=== PATIENT | female | born 1960 | race Caucasian/White ===

== ENCOUNTER 2019-03-13 11:55 | Inpatient (IN) | payer OTHER ==
[2019-03-13 12:45] LABS: #Basophils 0.1 thou/uL (0.0-0.2); #Eosinphils 0.1 thou/uL (0.0-0.7); #Lymphocytes 1.6 thou/uL (1.20-3.40); #Neutrophils 11.6 thou/uL (1.40-6.50); %Basophils 0.5 % (0.0-1.0); %Eosinophils 0.6 % (0.0-10.0); %Lymphocytes 11.1 % (21.0-51.0); %Monocytes 6.7 % (0.0-10.0); %Neutrophils 81.2 % (42.0-75.0); Hemoglobin 13.4 g/dL (12.0-16.0); Mean Corpuscular HGB CONC 31.3 g/dL (32.0-36.0); Mean Corpuscular Hemoglobin 30.9 pg (27.0-31.0); Mean Corpuscular Volume 98.7 fL (78.0-98.0); Mean Platelet Volume 9.8 fL (7.4-10.4); Platelet Count 378 thou/uL (130-400); RBC Distribution Width 14.8 % (11.5-14.5); Red Blood Cell (RBC) Count 4.35 mill/uL (4.20-5.40); White Blood Cell (WBC) Count 14.3 thou/uL (4.8-10.8)
[2019-03-13 13:07] LABS: ALT (SGPT) 83 U/L (8-55); AST (SGOT) 199 U/L (5-34); Albumin 3.4 g/dL (3.5-5.0); Alkaline Phosphatase 811 U/L (40-110); Anion Gap 17 mmol/L (10-20); BUN (Urea Nitrogen) 11 mg/dL (9.8-20.1); CK (CPK) 236 U/L (29-168); Calc. Creatinine Clearance 0 mL/min (70-130); Calcium 9.5 mg/dL (7.8-10.44); Carbon Dioxide 24 mmol/L (22-29); Chloride 95 mmol/L (98-107); Estimated GFR-MDRD 78; Globulin 4.3 g/dL (2.4-3.5); Glucose 107 mg/dL (70-105); Potassium 4.1 mmol/L (3.5-5.1); Protein, Total 7.7 g/dL (6.0-8.3); Sodium 132 mmol/L (136-145)
[2019-03-13] MEDS ORDERED: Iopamidol-370 76% 500 ML 1 ML ONE (13:42)
[2019-03-13 13:58] LABS: Magnesium 2.2 mg/dL (1.6-2.6)
--- NOTE | 2019-03-13 14:32 | RAD ---
RADIOGRAPH CHEST 1 VIEW: DATE: 03/13/2019 HISTORY: 58-year-old female with dyspnea FINDINGS: There are no airspace densities, pulmonary edema, pneumothorax, or cardiomegaly. The lateral costophr enic angles are sharp. IMPRESSION: No acute cardiopulmonary findings.
--- NOTE | 2019-03-13 15:10 | CT ---
CT ANGIOGRAM THORAX WITH CONTRAST: (CTA pulmonary angiogram) DATE: 03/13/2019 HISTORY: 50-year-old female with dyspnea on exertion, fatigue, weight loss. TECHNIQUE: IV injection of iodinated contrast. Scan acquisition timing attempted to coincide with iodinated contrast bolus reaching maximal density in pulmonary arteries. 3-D MIP reconstructions. FINDINGS: Pulmonary thromboembolism: None. Lungs: No consolidation or edema. No suspicious nodules. Pneumothorax: None. Pleural effusion: None. Thoracic aorta: No aneurysm or dissection. Mediastinum: Enlarged right subcarinal suspicious mediastinal lymph nodes extending toward right lowe r hilar region. heart: No cardiomegaly or pericardial effusion. Osseous structures: Permeative, expansile lesion involving the lateral aspect of left fourth rib. IMPRESSION: 1. No pulmonary thromboembolism. 2. Metastatic liver disease. 3. Ascites. 4. Left breast cavity, with mass, edema, and severe left breast skin thickening. Suspicious for infla mmatory left breast cancer. 5. Left axillary lymphadenopathy. 6. Destructive osseous lesion at left fourth rib: Evidence for bone metastasis. 7. Right subcarinal mediastinal lymphadenopathy.
--- NOTE | 2019-03-13 15:18 | CT ---
CT OF THE ABDOMEN AND PELVIS WITH IV CONTRAST INDICATION: Left breast mass with intermittent abdominal pain COMPARISON: None FINDINGS: ABDOMEN: Lung bases: Clear Liver: There are numerous large heterogeneous enhancing hypodense masses involving the liver consiste nt with metastatic disease. One of the largest conglomeration of masses is seen within the right hepatic lobe measuring 11 cm. Gallbladder: The gallbladder is filled with hyperdense material which may reflect multiple stones, s ludge or vicarious excretion of contrast within the gallbladder. Pancreas: Normal. Adrenal glands: Normal. Spleen: Normal. Kidneys and ureters: Normal. No hydronephrosis. Vasculature: There are moderate vascular calcifications seen involving the visualized vasculature. Lymph nodes:There are pathologically enlarged lymph nodes within the upper abdomen and the gastrohepa tic, peripancreatic and periportal regions. One of the largest is seen within the periportal region measuring 1.8 cm on image 30 of series 3. Free fluid in abdomen:There is mild free fluid within the abdomen. There is nodularity involving the anterior liver capsule image 24 series 3 measuring 9.5 mm. There is additional area of nodularity within the left paracolonic gutter measuring 1.4 cm image 34 series 3. Additional areas of subtle nod ularity is seen within the left paracolonic gutter. Additional small focus of nodularity seen involving the right hemidiaphragm on image 8 of series 3 measuring 7 mm. Findings are suspicious for peritoneal carcinomatosis. PELVIS: Small and large bowel: Normal Appendix:Normal with a tiny appendicolith Bladder: Normal. Rectal and perirectal soft tissues:Normal. Reproductive structures: Normal. Free fluid in pelvis: There is moderate free fluid in the pelvis Lymphadenopathy pelvis: No lymphadenopathy is evident. Osseous structures: No acute osseous abnormality. No destructive osteolytic or osteoblastic lesion i s identified. There is scattered degenerative and osteoarthritic changes. Soft tissues:Normal. IMPRESSION: 1. Findings of diffuse hepatic metastatic disease, upper abdominal malignant lymphadenopathy and susp icion of peritoneal carcinomatosis with mild ascites. Diagnostic paracentesis may be helpful to confirm the peritoneal carcinomatosis. 2. Hyperdense material within the gallbladder may reflect hyperdense, or sludge, stones or vicarious excretion of contrast.
[2019-03-13] MEDS ORDERED: Morphine 4 MG/ML VIAL ONE (16:01)
[2019-03-13 16:27] LABS: Bacteria/HPF None Seen HPF (None Seen); Bilirubin 1+ (Negative); Blood, Urine Negative (Negative); Clarity Clear (Clear); Glucose, Urine (Dipstick) Normal (Negative); Leukocyte Negative Leu/uL (Negative); Nitrite 1+ (Negative); Protein, Urine (Dipstick) 20 mg/dL (Neg-Trace); RBC/HPF 0-3 HPF (0-3); Squamous Epithelial 0-3 HPF (0-3); Urobilinogen 6 mg/dL (Less than 2); WBC/HPF 0-3 HPF (0-3)
[2019-03-13] MEDS ORDERED: Acetaminophen 650 MG Suppository PR PRN (17:45)
[2019-03-13] MEDS ORDERED: Bisacodyl 5 MG TAB PO PRN (17:45)
[2019-03-13] MEDS ORDERED: Acetaminophen 325 MG TAB PO PRN (17:45)
--- NOTE | 2019-03-13 18:28 | HP ---
PRIMARY CARE PROVIDER: Fabio Briscoe MD CHIEF COMPLAINT: Shortness of breath. HISTORY OF PRESENT ILLNESS: Ms. Mcleod is a pleasant 58-year-old lady, who was seen at [facility] on March 13, 2019. She reports that six months ago, she noticed a "cyst" in her left breast. She also reports some rash in the area. She reports feeling short of breath over the last one month. She denies orthopnea or paroxysmal nocturnal dyspnea. She endorses shortness of breath with exertion. She denies any chest pain. She reports that the breast cyst ruptured one week ago. She reports that the breast mass has been getting worse. She reports night sweats over the last 2 weeks. She reports weight loss of 20 pounds in the last one month. She also reports vomiting over the last 3 weeks. She also reports abdominal discomfort over the last 1 to 2 months. She reports some bright streaks on toilet paper over the last couple of weeks. She denies any dark blood. She also reports pain over her right buttock. She presented to the emergency room because of the above symptoms. REVIEW OF SYSTEMS: All systems were reviewed and found to be negative except for the pertinent positives mentioned above. PAST MEDICAL HISTORY: None, she thinks she may have a history of gastroesophageal reflux disease, but has not sought treatment. She has not seen a physician in 15 years. PAST SURGICAL HISTORY: Right hand surgery. SOCIAL HISTORY: She currently smokes 4 to 5 cigarettes a day. Until two weeks ago, she was smoking one pack of cigarettes a day. She reports marijuana use. She denies alcohol use. FAMILY HISTORY: She thinks that her mother may have from breast cancer in her late 50s. ALLERGIES: NO KNOWN DRUG ALLERGIES. CURRENT MEDICATIONS: None. PHYSICAL EXAMINATION: GENERAL: On examination, Ms. Mcleod is awake and alert, not in acute distress. VITAL SIGNS: Blood pressure is 157/87, pulse 106, respiratory rate 17, and oxygen saturation 99% on room air. She is afebrile. EYES: She has scleral icterus. No conjunctival pallor. ENT: Dry mucosal membranes. No oropharyngeal erythema or exudates. NECK: Supple and nontender. Trachea is midline. RESPIRATORY: Accessory muscles of breathing are not active. Chest wall movements are symmetric bilaterally. Lungs are clear to auscultation without wheeze, rhonchi, or crepitations. CARDIOVASCULAR: S1 and S2 are heard, tachycardic and regular. Peripheral pulses palpable. ABDOMEN: Soft, mild tenderness in the right upper and left upper quadrants. No guarding or rigidity. Bowel sounds are heard. BREASTS: The patient has induration around left nipple and left lower quadrant of the left breast, she has faint erythema under the breast. There is no drainage. NEUROLOGIC: Cranial nerves 2 through 12 are intact. MUSCULOSKELETAL: The patient is able to move all 4 extremities. SKIN: No rashes. PSYCHIATRIC: Flat affect. The patient is oriented to person, place, and time. LYMPHATIC: Left axillary lymphadenopathy. LABORATORY DATA: Ms. Mcleod's labs and investigations were reviewed. I reviewed her electrocardiogram, which shows sinus tachycardia, no ST changes to suggest an acute coronary syndrome. I also reviewed her chest x-ray, which does not show any pulmonary infiltrates. She had CT scan of the abdomen and pelvis, which showed diffuse hepatic metastatic disease, upper abdominal malignant lymphadenopathy and suspicion of peritoneal carcinomatosis with mild ascites. She also had hyperdense material within the gallbladder, which may reflect hyperdense or sludge, stones or white areas excretion of contrast. CT angiogram of the chest did not show any pulmonary thromboembolism. It showed metastatic liver disease, ascites, left breast cavity with mass, edema, and severe left breast skin thickening, suspicious for inflammatory left breast cancer. She also has left axillary lymphadenopathy, destructive osseous lesion at left fourth rib, evidence for bone metastases and right subcarinal mediastinal lymphadenopathy. She has leukocytosis with 14,300 white cells, of which 81% are neutrophils. Hemoglobin and platelet count are normal. Sodium is decreased at 132. Potassium is normal. Total bilirubin is elevated at 5.0, AST elevated at 199, ALT elevated at 83, and alkaline phosphatase is elevated at 811. CK elevated at 236, troponin I is normal, and BNP is normal. Albumin is decreased at 3.4, lipase is normal, and TSH is elevated at 5.9736. Urinalysis is positive for nitrite, bilirubin, and urobilinogen. ASSESSMENT AND PLAN: Ms. Mcleod is a pleasant 58-year-old lady, who was seen at [facility] on March 13, 2019. Her problem list includes: 1. Metastatic malignancy: Ms. Mcleod's presentation is suspicious for metastatic malignancy, most likely secondary to breast cancer. She will be admitted to the hospital for further management. We will consult Oncology Service for opinion and help with management. 2. Abnormal LFTs: Most likely secondary to metastatic hepatic lesions. 3. Leukocytosis: Etiology is unclear at this time. However, urinalysis is suggestive of urinary tract infection. We will start empiric ceftriaxone. 4. Hyponatremia: Mild, likely asymptomatic. 5. Abnormal TSH: TSH is mildly elevated. We will check free T4. Many thanks for allowing me to participate in your patient's care. Please feel free to contact me with any questions or concerns. LEVEL OF RISK: High. LEVEL OF COMPLEXITY: High. Job ID: [id number]
[2019-03-13 19:34] VITALS: BMI 27.4
[2019-03-13] MEDS: Sodium Chloride 0.9% 1,000 ML IV SCH (20:17)
[2019-03-13] MEDS: cefTRIAXone\\ROCEPHIN 1 GM in Sodium Chloride 0.9% 100 ML IVPB SCH (20:18)
[2019-03-13] MEDS: Morphine 2 MG/ML SYRINGE SLOW IVP PRN (23:22)
[2019-03-14 04:12] LABS: ALT (SGPT) 83 U/L (8-55); AST (SGOT) 222 U/L (5-34); Albumin 2.7 g/dL (3.5-5.0); Alkaline Phosphatase 690 U/L (40-110); Bilirubin, Direct 5.1 mg/dL (0.1-0.3); Bilirubin, Total 6.5 mg/dL (0.2-1.2); Protein, Total 5.9 g/dL (6.0-8.3)
[2019-03-14 04:16] LABS: Anion Gap 15 mmol/L (10-20); BUN (Urea Nitrogen) 9 mg/dL (9.8-20.1); Calc. Creatinine Clearance 98 mL/min (70-130); Calcium 8.5 mg/dL (7.8-10.44); Carbon Dioxide 23 mmol/L (22-29); Chloride 101 mmol/L (98-107); Estimated GFR-MDRD Greater than 90; Glucose 83 mg/dL (70-105); Potassium 4.5 mmol/L (3.5-5.1); Sodium 134 mmol/L (136-145)
[2019-03-14 04:44] LABS: #Basophils 0.1 thou/uL (0.0-0.2); #Eosinphils 0.1 thou/uL (0.0-0.7); #Lymphocytes 1.5 thou/uL (1.20-3.40); #Monocytes 0.9 thou/uL (0.11-0.59); #Neutrophils 7.8 thou/uL (1.40-6.50); %Basophils 0.9 % (0.0-1.0); %Eosinophils 1.3 % (0.0-10.0); %Monocytes 8.3 % (0.0-10.0); %Neutrophils 75.5 % (42.0-75.0); Hemoglobin 11.3 g/dL (12.0-16.0); Mean Corpuscular HGB CONC 32.8 g/dL (32.0-36.0); Mean Corpuscular Hemoglobin 32.1 pg (27.0-31.0); Mean Corpuscular Volume 97.9 fL (78.0-98.0); Mean Platelet Volume 8.8 fL (7.4-10.4); Platelet Count 275 thou/uL (130-400); RBC Distribution Width 14.6 % (11.5-14.5); Red Blood Cell (RBC) Count 3.51 mill/uL (4.20-5.40); White Blood Cell (WBC) Count 10.4 thou/uL (4.8-10.8)
[2019-03-14] MEDS: Morphine 2 MG/ML SYRINGE SLOW IVP PRN ×3 (08:32→20:40)
[2019-03-14] MEDS: Nicotine 21 MG PATCH TD PRN (08:38)
[2019-03-14] MEDS: Sodium Chloride 0.9% 1,000 ML IV SCH ×2 (08:40→20:44)
[2019-03-14] MEDS ORDERED: Hydrocortisone/Pramoxine (Proctofoam HC) 10 GM BOX PR SCH (09:00)
[2019-03-14] MEDS: Hydrocortisone 2.5%/Pramoxine 1% CRM 30 GM TUBE PR SCH ×3 (09:00→20:44)
[2019-03-14] MEDS ORDERED: Enoxaparin Sodium 40 MG/0.4 ML SYRINGE SC SCH (09:00)
--- NOTE | 2019-03-14 14:12 | PDOC.HOSPP ---
- Subjective Encounter Date: 03/14/19 Encounter Time: 07:00 Subjective: Pt seen for followup re: metastatic malignancy. States she feels better. Reports DuoNebs are helping with breathing. - Objective Vital Signs & Weight: Vital Signs (12 hours) Temp Pulse Resp BP Pulse Ox 03/14/19 12:43 106 H 18 96 03/14/19 12:39 97.3 F L 90 18 137/74 96 03/14/19 08:00 98 03/14/19 07:53 98.3 F 93 18 147/70 H 95 Weight Weight 145 lb 3.2 oz Result Diagrams: 03/14/19 03:45 03/14/19 03:45 Additional Labs: Labs and MARs reviewed by me Hospitalist ROS - Review of Systems Respiratory: reports: cough, dry, SOB with excertion. denies: shortness of breath, hemoptysis, pleuritic pain, sputum, wheezing Cardiovascular: denies: chest pain, palpitations, orthopnea, paroxysmal noc. dyspnea, edema, light headedness - Medication Medications: Active Medications Generic Name Dose Route Start Last Admin Trade Name Freq PRN Reason Stop Dose Admin Albuterol/Ipratropium 3 ml 03/14/19 13:00 03/14/19 12:43 Duoneb NEB 3 ml [id number] NATI Administration Sodium Chloride 1,000 mls @ 70 mls/hr 03/13/19 18:15 03/14/19 08:40 Normal Saline 0.9% IV 1,000 mls .[id number] NATI Administration Ceftriaxone Sodium 1 gm/ 100 mls @ 200 mls/hr 03/13/19 18:00 03/13/19 20:18 Sodium Chloride IVPB 100 mls Q24HR NATI Administration Morphine Sulfate 2 mg 03/13/19 17:48 03/14/19 12:30 Morphine SLOW IVP 2 mg Q4H PRN Administration Pain Nicotine 21 mg 03/13/19 17:45 03/14/19 08:38 Nicoderm Patch TD 21 mg Q24HR PRN Administration Smoking Cessation - Exam General Appearance: NAD Eye: scleral icterus ENT: normocephalic atraumatic, moist mucosa Neck: supple, no thyromegaly Heart: RRR Respiratory: CTAB Gastrointestinal: soft, non-tender Extremities: no clubbing Musculoskeletal: normal strength Psychiatric: normal affect, normal behavior Hosp A/P (1) Metastatic cancer Code(s): C79.9 - SECONDARY MALIGNANT NEOPLASM OF UNSPECIFIED SITE Status: Acute (2) UTI (urinary tract infection) Status: Acute (3) Abnormal LFTs Code(s): R94.5 - ABNORMAL RESULTS OF LIVER FUNCTION STUDIES Status: Acute (4) Hyponatremia Code(s): E87.1 - HYPO-OSMOLALITY AND HYPONATREMIA Status: Acute (5) Tobacco abuse Code(s): Z72.0 - TOBACCO USE Status: Chronic - Plan plan discussed w/ family, continue antibiotics, out of bed/ambulate Await oncology opinion. Continue ceftriaxone, follow urine culture. PRN nicotine patch. Hyponatremia mild, likely asymptomatic. Continue Duonebs.
[2019-03-14] MEDS ORDERED: Lorazepam 2 MG/ML VIAL SLOW IVP SCH (16:15)
--- NOTE | 2019-03-14 17:46 | MRI ---
MRI Brain W WO Con History: Metastatic breast cancer. Comparison: None. Findings: There is enhancing mass measuring 1.3 cm and the right occipital calvarium. No abnormal int raparenchymal enhancing mass is appreciated. On the diffusion weighted imaging sequence there is diffusion restriction within the right occipital calvarial mass. Evaluation for small intracranial metastasis is limited due to the extensive motion artifact. No midline shift. No mass effect. Mild chronic microvascular ischemic changes. Globes are intact. On the susceptibility weighted imaging sequence there are no abnormal foci of hemorrhage. Impression: Right occipital calvarial metastatic focus which appears to extend through the inner tabl e with pachymeningeal abutment. This single metastatic focus measures 1.6 x 1 x 2.1 cm. No intraparenchymal metastasis evaluated given the limitation of motion.
[2019-03-14] MEDS: cefTRIAXone\\ROCEPHIN 1 GM in Sodium Chloride 0.9% 100 ML IVPB SCH (18:02)
--- NOTE | 2019-03-14 22:01 | CON ---
DATE OF CONSULTATION: REASON FOR CONSULTATION: Breast cancer. HISTORY OF PRESENT ILLNESS: Ms. Mcleod is a pleasant 58-year-old lady, who presented to [facility] with abdominal bloating, weight loss, and left breast cyst. She had some shortness of breath. She underwent a CT angio of her chest, which showed left breast mass with breast thickening. There was left axillary lymphadenopathy. There was a destructive lesion of the 4th rib. She had subcarinal mediastinal lymphadenopathy. She had metastatic liver disease and ascites. She then underwent a CT of the abdomen and chest, which confirmed peritoneal carcinomatosis with mild ascites. She had multiple liver lesions, the largest measuring 11 cm in the right hepatic lobe. Her bilirubin is elevated at 6.5. She has a neglected left breast with skin changes and necrotic area around the nipple, large palpable mass underneath the nipple almost replacing the breast. She does have a palpable left axillary lymph node. She states the mass in her breast has been present for over 6 months. She has lost 25 pounds in the last 6 weeks. FAMILY HISTORY: She has a family history of breast cancer with her mother dying from metastatic breast cancer at the age of 58. The patient was seen at bedside with family present. She does admit to dizziness, lightheadedness and occasional headaches. PAST MEDICAL HISTORY: Reflux disease, tobacco use. PAST SURGICAL HISTORY: Hand surgery. ALLERGIES: NO KNOWN DRUG ALLERGIES. HOME MEDICATIONS: None. FAMILY HISTORY: Mother from breast cancer at the age of 58. She was treated in [place]. SOCIAL HISTORY: , lives with her spouse, a 40+ pack-year history of smoking. Positive marijuana use. No alcohol use. REVIEW OF SYSTEMS: A 10-point review of systems is negative except for noted in HPI. PHYSICAL EXAMINATION: VITAL SIGNS: Temperature is 97.3, pulse is 106, respiratory rate 18, BP is 137/74. She is 96% on room air. GENERAL: This is a well-developed, well-nourished female, in no acute distress. HEENT: Normocephalic, atraumatic. Pupils are equal and reactive to light. NECK: Supple. CV: Regular rate and rhythm. LUNGS: Clear. ABDOMEN: Distended, nontender. Bowel sounds are positive. EXTREMITIES: There is no clubbing, or cyanosis. SKIN: No rash. LYMPH: She has palpable left axillary lymph node. BREAST: She has a left breast mass with skin changes. Right breast with no masses or nodules. NEUROLOGIC: Nonfocal. PSYCHIATRIC: She is alert, oriented and appropriate. PERTINENT LABS AND X-RAYS: Current WBCs are 10.4, hemoglobin 11.3, hematocrit 34.4, platelet count is 275,000. She has 75% neutrophils, 14% lymphocytes. Sodium is 134, potassium 4.5, chloride 101, CO2 is 23, BUN is 9, creatinine 0.64, calcium is 8.5, bilirubin is 6.5, AST is 222, ALT is 83, alkaline phosphatase is 690. Creatine kinase is 236. Troponin is negative. Serum total protein is 5.9, albumin 2.7, globulin 4.3. TSH is 5.9. Urine is positive for nitrite and bilirubin. Radiology per HPI. ASSESSMENT: Left breast mass with metastasis to liver, bone and peritoneal carcinomatosis. 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 We need a tissue biopsy to confirm. We discussed biopsy from the liver. However, I spoke with Dr. North, who will perform a left breast biopsy. She has had some neurological symptoms, so I will check a brain MRI to rule out metastatic lesions. Severity of disease was discussed with patient and family. She understands that all treatments will be palliative and she wished to proceed. Thank you for the consult. Case has been discussed in detail with Dr. Garcia. Job ID: [id number]
[2019-03-15] MEDS: Hydrocortisone 2.5%/Pramoxine 1% CRM 30 GM TUBE PR SCH ×3 (08:33→20:43)
--- NOTE | 2019-03-15 09:30 | PDOC.MOPN ---
- Vital Signs Vital Signs: Vital Signs (12 hours) Temp Pulse Resp BP Pulse Ox 03/15/19 08:05 89 18 98 03/15/19 08:00 98.4 F 98 18 145/79 H 96 03/14/19 23:20 94 16 95 Weight Admit Weight 145 lb 3.2 oz Weight 145 lb 3.2 oz - Physical Exam General: Alert, Oriented x3, Other (L breast with large palpable mass, no nipple drainage) HEENT: Atraumatic Lungs: Clear to auscultation Cardiovascular: Regular rate Abdomen: Normal bowel sounds, Other (slight distension but no tenderness) Extremities: No clubbing Skin: No rashes Neurological: Normal speech Psych/Mental Status: Mental status NL - Labs Result Diagrams: 03/14/19 03:45 03/14/19 03:45 Lab results: Laboratory Results - last 24 hr 03/14/19 15:29: Free T4 0.97 A/P - Problem (1) Breast cancer Current Visit: Yes Status: Acute (2) Brain metastasis Current Visit: Yes Code(s): C79.31 - SECONDARY MALIGNANT NEOPLASM OF BRAIN Status: Acute (3) Abnormal LFTs Current Visit: Yes Code(s): R94.5 - ABNORMAL RESULTS OF LIVER FUNCTION STUDIES Status: Acute (4) Hyponatremia Current Visit: Yes Code(s): E87.1 - HYPO-OSMOLALITY AND HYPONATREMIA Status : Acute (5) Metastatic cancer Current Visit: Yes Code(s): C79.9 - SECONDARY MALIGNANT NEOPLASM OF UNSPECIFIED SITE Status: Acute - Plan Plan: 1. needs biopsy of breast before she leaves, gen surg has been consulted 2. rad onc referral sunday or as outpt for R occipital calvarial met 3. d/c IVF 4. change to oral morphine, planning for d/c 5. bone scan 6. f/u in clinic after path back
[2019-03-15] MEDS: Morphine IR Tab 15 MG TAB PO PRN ×2 (11:03→20:42)
[2019-03-15] MEDS: Nicotine 21 MG PATCH TD PRN (11:05)
[2019-03-15] MEDS: cefTRIAXone\\ROCEPHIN 1 GM in Sodium Chloride 0.9% 100 ML IVPB SCH (17:53)
[2019-03-16] MEDS: Morphine IR Tab 15 MG TAB PO PRN ×4 (00:50→19:42)
[2019-03-16 05:42] LABS: #Basophils 0.1 thou/uL (0.0-0.2); #Eosinphils 0.1 thou/uL (0.0-0.7); #Lymphocytes 1.3 thou/uL (1.20-3.40); #Monocytes 0.7 thou/uL (0.11-0.59); #Neutrophils 7.8 thou/uL (1.40-6.50); %Basophils 0.5 % (0.0-1.0); %Eosinophils 1.1 % (0.0-10.0); %Lymphocytes 13.2 % (21.0-51.0); %Monocytes 7.4 % (0.0-10.0); %Neutrophils 77.8 % (42.0-75.0); Hemoglobin 10.4 g/dL (12.0-16.0); Mean Corpuscular HGB CONC 32.2 g/dL (32.0-36.0); Mean Corpuscular Hemoglobin 32.2 pg (27.0-31.0); Mean Corpuscular Volume 99.8 fL (78.0-98.0); Mean Platelet Volume 8.9 fL (7.4-10.4); Platelet Count 300 thou/uL (130-400); RBC Distribution Width 14.3 % (11.5-14.5); Red Blood Cell (RBC) Count 3.24 mill/uL (4.20-5.40); White Blood Cell (WBC) Count 10.1 thou/uL (4.8-10.8)
[2019-03-16] MEDS ORDERED: Lidocaine 2% w/Epinephrine 1:200K 20 ML VIAL FS SCH (05:45)
[2019-03-16 06:04] LABS: ALT (SGPT) 70 U/L (8-55); AST (SGOT) 174 U/L (5-34); Albumin 2.4 g/dL (3.5-5.0); Alkaline Phosphatase 649 U/L (40-110); Anion Gap 11 mmol/L (10-20); BUN (Urea Nitrogen) 8 mg/dL (9.8-20.1); Bilirubin, Total 5.6 mg/dL (0.2-1.2); Calc. Creatinine Clearance 100 mL/min (70-130); Calcium 8.4 mg/dL (7.8-10.44); Carbon Dioxide 24 mmol/L (22-29); Chloride 104 mmol/L (98-107); Estimated GFR-MDRD Greater than 90; Glucose 87 mg/dL (70-105); Magnesium 2.1 mg/dL (1.6-2.6); Potassium 3.8 mmol/L (3.5-5.1); Protein, Total 5.4 g/dL (6.0-8.3); Sodium 135 mmol/L (136-145)
[2019-03-16] MEDS: Ondansetron PF 4 MG/2 ML Vial IVP PRN (08:05)
--- NOTE | 2019-03-16 08:38 | PDOC.HOSPP ---
- Subjective Encounter Date: 03/15/19 Encounter Time: 16:00 Subjective: Patient seen and examined for Breast Ca with mets. No new complaints. No overnight events - Objective Vital Signs & Weight: Vital Signs (12 hours) Temp Pulse Resp BP BP Pulse Ox 03/16/19 07:07 98.3 F 95 16 161/87 H 95 03/16/19 06:44 98 16 96 03/16/19 03:37 98.4 F 91 16 113/80 94 L 03/16/19 00:32 97 Weight Admit Weight 145 lb 3.2 oz Weight 145 lb 3.2 oz I&O: 03/15/19 03/16/19 03/17/19 06:59 06:59 06:59 Intake Total 1390 Balance 1390 Result Diagrams: 03/16/19 05:25 03/16/19 05:25 Additional Labs: Microbiology 03/13/19 15:50 Urine clean catch Urine Culture - Final Escherichia coli Radiology Reviewed by me: Yes (CT - reviewed - mets) Hospitalist ROS - Review of Systems Cardiovascular: denies: chest pain, palpitations, orthopnea, paroxysmal noc. dyspnea, edema, light headedness, other Gastrointestinal: denies: nausea, vomiting, abdominal pain, diarrhea, constipation, melena, hematochezia, other - Medication Medications: Active Medications Generic Name Dose Route Start Last Admin Trade Name Freq PRN Reason Stop Dose Admin Albuterol/Ipratropium 3 ml 03/14/19 13:00 03/16/19 06:44 Duoneb NEB 3 ml [id number] NATI Administration Hydrocortisone/Pramoxine 0 gm 03/14/19 09:00 03/15/19 20:43 Analpram Hc NH 1 applic TID NATI Administration Ceftriaxone Sodium 1 gm/ 100 mls @ 200 mls/hr 03/13/19 18:00 03/15/19 17:53 Sodium Chloride IVPB 100 mls Q24HR NATI Administration Morphine Sulfate 15 mg 03/15/19 09:35 03/16/19 07:08 Morphine Ir Tab PO 15 mg Q3H PRN Administration Pain Nicotine 21 mg 03/13/19 17:45 03/15/19 11:05 Nicoderm Patch TD 21 mg Q24HR PRN Administration Smoking Cessation Ondansetron HCl 4 mg 03/13/19 17:45 03/16/19 08:05 Zofran IVP 4 mg Q6H PRN Administration Nausea/Vomiting - Exam General Appearance: NAD Neck: supple, no JVD Heart: RRR, no gallops Respiratory: CTAB, no rales Gastrointestinal: soft, non-distended Extremities: no cyanosis Neurological: no new deficit Hosp A/P - Plan DVT proph w/SCDs New diagnosis of Left Breast CA with mets Sepsis due to Ecoli UTI - POA Abn LFTS due to mets Hyponatremia Ascites - ?malignant PLAN: Await pathological diagnosis Bone scan Cont IV Atbx Rad Onc consult on Sunday or as outpt Cont other meds Pain control
--- NOTE | 2019-03-16 10:40 | OP ---
DATE OF PROCEDURE: 03/16/2019 PREOPERATIVE DIAGNOSIS: Left breast mass. POSTOPERATIVE DIAGNOSIS: Left breast mass. PROCEDURE PERFORMED: Core needle biopsy of left breast mass. ANESTHESIA: Local. ESTIMATED BLOOD LOSS: Minimal. COMPLICATIONS: None. SPECIMEN: Three cores of breast tissue obtained. DESCRIPTION OF PROCEDURE: The patient was taken to the operating room and laid supine on the operating room table. After the area was prepped and draped, local anesthetic was infiltrated over the palpable abnormality of the left breast. Core biopsy was performed. Good cores obtained. The skin site was closed using a Vicryl suture. All cores were sent to Path for final diagnosis. Job ID: [id number]
[2019-03-16] MEDS: Nicotine 21 MG PATCH TD PRN (11:25)
--- NOTE | 2019-03-16 14:29 | PDOC.HOSPP ---
- Subjective Encounter Date: 03/16/19 Encounter Time: 14:27 Subjective: Patient seen and examined for Breast CA. s/p Breast biopsy today. Pain controlled. No new complaints. No overnight events - Objective Vital Signs & Weight: Vital Signs (12 hours) Temp Pulse Resp BP BP Pulse Ox 03/16/19 12:57 112 H 20 95 03/16/19 08:00 95 03/16/19 07:07 98.3 F 95 16 161/87 H 95 03/16/19 06:44 98 16 96 03/16/19 03:37 98.4 F 91 16 113/80 94 L Weight Admit Weight 145 lb 3.2 oz Weight 145 lb 3.2 oz I&O: 03/15/19 03/16/19 03/17/19 06:59 06:59 06:59 Intake Total 1390 Balance 1390 Result Diagrams: 03/16/19 05:25 03/16/19 05:25 Hospitalist ROS - Review of Systems Cardiovascular: denies: chest pain, palpitations, orthopnea, paroxysmal noc. dyspnea, edema, light headedness, other Gastrointestinal: reports: constipation. denies: nausea, vomiting, abdominal pain, diarrhea, melena, hematochezia, other - Medication Medications: Active Medications Generic Name Dose Route Start Last Admin Trade Name Freq PRN Reason Stop Dose Admin Albuterol/Ipratropium 3 ml 03/14/19 13:00 03/16/19 12:57 Duoneb NEB 3 ml [id number] NATI Administration Hydrocortisone/Pramoxine 0 gm 03/14/19 09:00 03/15/19 20:[address] 1 applic TID NATI Administration Ceftriaxone Sodium 1 gm/ 100 mls @ 200 mls/hr 03/13/19 18:00 03/15/19 17:53 Sodium Chloride IVPB 100 mls Q24HR NATI Administration Morphine Sulfate 15 mg 03/15/19 09:35 03/16/19 11:27 Morphine Ir Tab PO 15 mg Q3H PRN Administration Pain Nicotine 21 mg 03/13/19 17:45 03/16/19 11:25 Nicoderm Patch TD 21 mg Q24HR PRN Administration Smoking Cessation Ondansetron HCl 4 mg 03/13/19 17:45 03/16/19 08:05 Zofran IVP 4 mg Q6H PRN Administration Nausea/Vomiting - Exam General Appearance: NAD Heart: RRR, no gallops Respiratory: CTAB, no rales Gastrointestinal: soft, non-distended, normal bowel sounds Extremities: no edema Hosp A/P - Plan DVT proph w/SCDs New diagnosis of Left Breast CA with mets Sepsis due to Ecoli UTI - POA Abn LFTS due to mets Hyponatremia Ascites - ?malignant Chronic Anemia PLAN: s/p Breast biopsy Bone scan pending Cont IV Atbx Rad Onc consult per Dr Garcia Cont other meds Pain control Treat constipation
[2019-03-16] MEDS: Hydrocortisone 2.5%/Pramoxine 1% CRM 30 GM TUBE PR SCH ×2 (15:00→21:52)
[2019-03-16] MEDS: cefTRIAXone\\ROCEPHIN 1 GM in Sodium Chloride 0.9% 100 ML IVPB SCH (17:26)
[2019-03-16] MEDS: Senokot S 8.6-50 MG TAB PO SCH (19:41)
[2019-03-17] MEDS: Morphine IR Tab 15 MG TAB PO PRN ×2 (02:39→09:31)
[2019-03-17] MEDS: Polyethylene Glycol 3350 17 GM Packet PO SCH (09:00)
[2019-03-17] MEDS: Senokot S 8.6-50 MG TAB PO SCH ×2 (09:28→19:57)
[2019-03-17] MEDS: Hydrocortisone 2.5%/Pramoxine 1% CRM 30 GM TUBE PR SCH ×3 (09:28→20:10)
[2019-03-17] MEDS: Ondansetron PF 4 MG/2 ML Vial IVP PRN ×2 (09:32→20:00)
[2019-03-17] MEDS: Nicotine 21 MG PATCH TD PRN (12:46)
[2019-03-17] MEDS: Lorazepam 0.5 MG TAB PO PRN (14:02)
--- NOTE | 2019-03-17 14:13 | NM ---
Radionucleotide PET scan HISTORY: Breast cancer. Metastatic disease. Abnormal MRI brain FINDINGS: Physiologic uptake of radiotracer throughout the skeleton. Slightly increased heterogeneous uptake with the appearance of degenerative changes of the shoulders, feet, and ankles. Pelvis is partially obscured by a bladder distended with activity. Spot images of the skull were obtained. No abnormal areas of radiotracer uptake are apparent, with pa rticular attention paid to the right occiput in region of lesion on recent MRI exam. IMPRESSION: No evidence of widespread osseous metastatic disease. No abnormalities the right occipita l skull evident. The lesion on recent MRI is still concerning based on morphology. It could represent a benign skull l esion or a purely lytic lesion, that would not show up on bone scan.
--- NOTE | 2019-03-17 14:46 | PDOC.MOPN ---
Interval History: MS IR causing nausea, switching to fentanyl patch - Vital Signs Vital Signs: Vital Signs (12 hours) Temp Pulse Resp BP Pulse Ox 03/17/19 14:05 102 H 20 98 03/17/19 08:22 93 L 03/17/19 08:00 98.1 F 99 18 141/77 H 96 Weight Admit Weight 145 lb 3.2 oz Weight 145 lb 3.2 oz - Physical Exam General: Alert, Oriented x3, No acute distress HEENT: Atraumatic, PERRLA, EOMI, Mucous membr. moist/pink Lungs: Clear to auscultation, Normal air movement Cardiovascular: Regular rate, Normal S1, Normal S2, No murmurs, Gallops, Rubs Abdomen: Normal bowel sounds, Soft, No tenderness, No hepatospenomegaly, No masses Extremities: No clubbing, No cyanosis, No edema, Normal pulses, No tenderness/ swelling Skin: No breakdown (left breast mass) Neurological: Normal speech Psych/Mental Status: Mental status NL - Labs Result Diagrams: 03/16/19 05:25 03/16/19 05:25 Status: lab reviewed by me A/P - Problem (1) Breast cancer Current Visit: Yes Status: Acute Qualifiers: Laterality: left - Plan Plan: Pain control, starting fentanyl patch Biopsy done, follow-up next week for results. Home when pain controlled.
[2019-03-17] MEDS: cefTRIAXone\\ROCEPHIN 1 GM in Sodium Chloride 0.9% 100 ML IVPB SCH (18:40)
[2019-03-18] MEDS: Morphine IR Tab 15 MG TAB PO PRN (02:45)
--- NOTE | 2019-03-18 06:51 | PDOC.HOSPP ---
- Subjective Encounter Date: 03/17/19 Encounter Time: 14:30 Subjective: Patient seen and examined for Breast CA. Nausea +. Gen pain+. No new complaints. No overnight events - Objective Vital Signs & Weight: Vital Signs (12 hours) Temp Pulse Resp BP BP Pulse Ox 03/18/19 06:25 98 20 96 03/18/19 00:50 91 16 95 03/17/19 23:35 98.4 F 101 H 20 148/73 H 95 03/17/19 19:52 97.6 F 102 H 16 132/58 L 94 L Weight Admit Weight 145 lb 3.2 oz Weight 145 lb 3.2 oz I&O: 03/16/19 03/17/19 03/18/19 06:59 06:59 06:59 Intake Total 1390 600 500 Balance 1390 600 500 Result Diagrams: 03/16/19 05:25 03/16/19 05:25 Hospitalist ROS - Review of Systems Respiratory: denies: cough, dry, shortness of breath, hemoptysis, SOB with excertion, pleuritic pain, sputum, wheezing, other Cardiovascular: denies: chest pain, palpitations, orthopnea, paroxysmal noc. dyspnea, edema, light headedness, other - Medication Medications: Active Medications Generic Name Dose Route Start Last Admin Trade Name Freq PRN Reason Stop Dose Admin Albuterol/Ipratropium 3 ml 03/14/19 13:00 03/18/19 06:25 Duoneb NEB 3 ml [id number] NATI Administration Fentanyl 25 mcg 03/17/19 14:00 03/17/19 14:42 Duragesic TD 25 mcg Q3D NATI Administration Hydrocortisone/Pramoxine 0 gm 03/14/19 09:00 03/17/19 20:10 Analpram Hc [place] Not Given TID NATI Lorazepam 0.5 mg 03/17/19 12:53 03/17/19 14:02 Ativan PO 0.5 mg Q6H PRN Administration Anxiety Morphine Sulfate 15 mg 03/15/19 09:35 03/18/19 02:45 Morphine Ir Tab PO 15 mg Q3H PRN Administration Pain Nicotine 21 mg 03/13/19 17:45 03/17/19 12:46 Nicoderm Patch TD 21 mg Q24HR PRN Administration Smoking Cessation Ondansetron HCl 4 mg 03/13/19 17:45 03/17/19 20:00 Zofran IVP 4 mg Q6H PRN Administration Nausea/Vomiting Polyethylene Glycol 17 gm 03/17/19 09:00 03/17/19 09:00 Miralax PO Not Given DAILY NATI Senna/Docusate Sodium 2 tab 03/16/19 21:00 03/17/19 19:57 Senokot S PO 2 tab BID NATI Administration - Exam General Appearance: NAD Neck: supple, no JVD Heart: RRR, no gallops Respiratory: CTAB, no rales Gastrointestinal: soft, non-tender, normal bowel sounds Extremities: no edema Hosp A/P - Plan DVT proph w/SCDs New diagnosis of Left Breast CA with mets - biopsy pending Sepsis due to Ecoli UTI - POA Abn LFTS due to mets Hyponatremia Ascites - ?malignant Chronic Anemia Acute pain due to Metastasis PLAN: DC Rocephin after today Start Fentanyl patch due to nausea with IR Morphine Bone scan neg Rad Onc consult as outpt Cont other meds DC home when pain is controlled Patient will f/u with Dr Garcia for biopsy report
[2019-03-18 08:34] VITALS: BP 138/70; TEMP 98.6
[2019-03-18] MEDS: Lorazepam 0.5 MG TAB PO PRN ×2 (09:03→14:30)
[2019-03-18] MEDS: Senokot S 8.6-50 MG TAB PO SCH (09:03)
[2019-03-18] MEDS: Polyethylene Glycol 3350 17 GM Packet PO SCH (09:04)
[2019-03-18] MEDS: Hydrocortisone 2.5%/Pramoxine 1% CRM 30 GM TUBE PR SCH ×2 (09:05→15:46)
[2019-03-18] MEDS: Nicotine 21 MG PATCH TD PRN (13:03)
--- NOTE | 2019-03-18 14:04 | PDOC.MOPN ---
Interval History: pain controlled with fentanyl. Ready to go home. - Vital Signs Vital Signs: Vital Signs (12 hours) Temp Pulse Resp BP Pulse Ox 03/18/19 13:53 92 20 96 03/18/19 08:29 98.6 F 98 16 138/70 92 L 03/18/19 06:25 98 20 96 Weight Admit Weight 145 lb 3.2 oz Weight 145 lb 3.2 oz - Physical Exam General: Alert, Oriented x3, No acute distress HEENT: Atraumatic, PERRLA, EOMI, Mucous membr. moist/pink Lungs: Clear to auscultation, Normal air movement Cardiovascular: Regular rate, Normal S1, Normal S2, No murmurs, Gallops, Rubs Abdomen: Normal bowel sounds, Soft, No tenderness, No hepatospenomegaly, No masses Extremities: No clubbing, No cyanosis, No edema, Normal pulses, No tenderness/ swelling Skin: No breakdown (left breast lesion) Neurological: Normal gait, Normal speech, Strength at 5/5 X4 ext, Normal tone, Sensation intact, Cranial nerves 3-12 NL, Reflexes 2+ Psych/Mental Status: Mental status NL, Mood NL - Labs Result Diagrams: 03/16/19 05:25 03/16/19 05:25 Status: lab reviewed by me A/P - Problem (1) Breast cancer Current Visit: Yes Status: Acute Qualifiers: Laterality: left - Plan Plan: Path positive for invasive carcinoma left breast ok to dc home Follow-up Dr. Garcia `03/25 at 10:00 am Fentanyl rx sent to B tylenol prn breakthrough pain.
[2019-03-18] MEDS: Ondansetron PF 4 MG/2 ML Vial IVP PRN (14:30)
--- NOTE | 2019-03-18 15:08 | DIS ---
DATE OF ADMISSION: 03/13/2019 DATE OF DISCHARGE: 03/18/2019 CONSULTANTS: 1. Dr. Garcia, Oncology Service. 2. Dr. North, General Surgery. PROCEDURE: Biopsy of the breast by Dr. North on March 16, 2019. DISCHARGE DIAGNOSES: 1. Breast cancer with metastasis to the liver and to the brain. 2. Sepsis due to Escherichia coli secondary to urinary tract infection status post treatment with Rocephin completed. 3. Ascites, most likely malignant from metastatic liver disease. 4. Chronic anemia. 5. Acute pain due to metastasis, improved with fentanyl patch. 6. Hyponatremia, improved. HOSPITAL COURSE: The patient is a 58-year-old female, who was admitted to the hospital with shortness of breath. She denied any orthopnea or paroxysmal nocturnal dyspnea. She endorsed shortness of breath on exertion. She denied any chest pain. She also noticed several months ago some lesion in her left breast which was getting worse. She started having some night sweats for the last 2 weeks prior to this hospitalization. Also, she reported weight loss about 20 pounds in the last month or so along with some vomiting on and off during a 3 week period prior to this hospitalization. Also she reports abdominal discomfort for the last 2 months and bright streaks on toilet paper over the couple of weeks. She denied any dark blood in the stool. At the time of emergency room evaluation, her EKG showed sinus tachycardia, no ST changes. Chest x-ray did not show any pulmonary infiltrates. CT scan of the abdomen and pelvis showed diffuse hepatic metastatic disease, upper abdominal malignant lymphadenopathy, suspicious of peritoneal carcinomatosis with mild ascites. CT angiogram of the chest showed no PE, but metastatic liver disease, ascites, and the left breast cavity with mass, edema, and severe left breast skin thickening suspicious for inflammatory left breast cancer. Also, she had left axillary lymphadenopathy and destructive osseous lesions of the left 4th rib, evidence for bone metastasis and right subcarinal mediastinal lymphadenopathy. Her leukocytosis was 14,300 with 81% of neutrophils. Hemoglobin and platelets level were normal. Sodium was decreased at 132, potassium was normal. Total bilirubin was elevated at 5.0. AST elevated at 199, ALT elevated at 83, and alkaline phosphatase was elevated at 811. The patient got admitted to the hospital to Oncology service. Oncology consult was requested. Also, she was placed on antibiotic for possible urinary tract infection. Later on this was confirmed by urine culture with growth of E coli more than 100,000 colonies. She was treated with Rocephin and she completed the course. She underwent MRI of the brain, which showed right occipital calvarial metastatic focus which appears to extend through the inner table with pachymeningeal abutment. This single metastatic focus measured 1.62 x 1 x 2.1 cm. The patient was seen by Oncology Team and biopsy of the breast was recommended, which was done by general surgeon, Dr. North. 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 The patient was started on morphine, but she had nausea and she was switched to transdermal patch fentanyl 25 mcg and she did well. She is going to be discharged today. Blood pressure is 138/70, pulse is 92, respiratory rate is 20, and O2 saturation is 96% on room air. She is examined before she is discharged home. She is going to stay on regular diet. ACTIVITIES: As tolerated. MEDICATIONS: At the time of discharge 1. Fentanyl 25 mcg transdermal patch, to be changed every 3 days. 2. Polyethylene glycol 17 g once a day. 3. Senokot-S 2 tablets twice a day. 4. Zofran ODT 4 mg q.6 hours p.r.n. as needed for nausea. 5. Nicotine patch 21 mg daily. 6. Lorazepam 0.5 mg twice a day. FOLLOWUP: She is going to see Dr. Garcia this week and she is going to be referred for Radiation Oncology evaluation and most likely chemotherapy. Job ID: [id number]
== END 2019-03-18 17:22 | disposition home or self-care (01) | DRG 597 ==
LOC: ERS 11:55 → ONC 19:04
PROVIDERS: ADMIT Internal Medicine; ATTEND Internal Medicine
PROC: 0H9U3ZX Drainage of Left Breast, Percutaneous Approach, Diagnostic (ICD-10-PCS; principal; 2019-03-16)
PROC: 0HBU3ZX Excision of Left Breast, Percutaneous Approach, Diagnostic (ICD-10-PCS; 2019-03-16)
DX: C50.912 Malignant neoplasm of unspecified site of left female breast (principal); A41.51 Sepsis due to Escherichia coli [E. coli]; C78.7 Secondary malignant neoplasm of liver and intrahepatic bile duct; C79.51 Secondary malignant neoplasm of bone; C79.31 Secondary malignant neoplasm of brain; N39.0 Urinary tract infection, site not specified; R18.0 Malignant ascites; E87.1 Hypo-osmolality and hyponatremia; G89.3 Neoplasm related pain (acute) (chronic); R59.1 Generalized enlarged lymph nodes; F17.210 Nicotine dependence, cigarettes, uncomplicated; K21.9 Gastro-esophageal reflux disease without esophagitis
CPT/HCPCS: 36415; 70553; 71045; 71275; 74177; 78306; 80048; 80053; 80076; 81003; 81015; 82550; 83690; 83735; 83880; 84439; 84443; 84484; 85025; 87077; 87086; 87186; 88305; 93005; 94640; 96361; 96374; A9503; J0696; J2060; J2270; J2405; J3490; J7620; Q9967

== ENCOUNTER 2019-04-06 16:00 | Emergency (ER) | payer OTHER ==
[2019-04-06 16:33] LABS: #Lymphocytes 0.5 thou/uL (1.20-3.40); #Monocytes 0.1 thou/uL (0.11-0.59); #Neutrophils 6.5 thou/uL (1.40-6.50); %Eosinophils 0.2 % (0.0-10.0); %Lymphocytes 6.4 % (21.0-51.0); %Monocytes 1.6 % (0.0-10.0); %Neutrophils 91.8 % (42.0-75.0); Hemoglobin 13.7 g/dL (12.0-16.0); Mean Corpuscular HGB CONC 33.3 g/dL (32.0-36.0); Mean Corpuscular Hemoglobin 34.1 pg (27.0-31.0); Mean Platelet Volume 8.6 fL (7.4-10.4); Platelet Count 275 thou/uL (130-400); RBC Distribution Width 15.2 % (11.5-14.5); Red Blood Cell (RBC) Count 4.02 mill/uL (4.20-5.40)
--- NOTE | 2019-04-06 16:46 | CT ---
CT Brain WO Con: 04/06/2019 4:14 PM CLINICAL HISTORY: Altered mental status history of metastatic breast cancer. IMAGING TECHNIQUE: Multiple CT images were obtained of the brain without IV contrast. COMPARISON: MR the brain with and without contrast dated March 14, 2019. FINDINGS: Brain: No acute infarct or hemorrhage is evident. No midline shift. Ventricles: Normal. No hydrocephalus.. Skull: The known lytic lesion involving the right occipital skull is not appreciably changed from the comparison MR dated March 14, 2019. The lytic lesion measures approximately 1.9 cm which is relatively stable. No new osteolytic lesion is seen involving the calvarium.. Visualized Paranasal sinuses: Clear.. Mastoid air cells:Clear. Extracranial soft tissues:Normal. IMPRESSION: No acute intracranial abnormality. 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
[2019-04-06 16:52] LABS: ALT (SGPT) 139 U/L (8-55); AST (SGOT) 337 U/L (5-34); Albumin 2.3 g/dL (3.5-5.0); Alkaline Phosphatase 1431 U/L (40-110); Anion Gap 18 mmol/L (10-20); BUN (Urea Nitrogen) 38 mg/dL (9.8-20.1); Calc. Creatinine Clearance 0 mL/min (70-130); Calcium 9.5 mg/dL (7.8-10.44); Carbon Dioxide 20 mmol/L (22-29); Chloride 94 mmol/L (98-107); Estimated GFR-MDRD 15; Globulin 3.7 g/dL (2.4-3.5); Glucose 68 mg/dL (70-105); Potassium 4.3 mmol/L (3.5-5.1); Sodium 128 mmol/L (136-145)
[2019-04-06 17:03] LABS: Bilirubin, Total 26.1 mg/dL (0.2-1.2)
[2019-04-06] MEDS ORDERED: Fentanyl 100 MCG/2 ML VIAL ONE ×2 (17:25→21:10)
[2019-04-06] MEDS ORDERED: Lorazepam 2 MG/ML VIAL ONE ×2 (19:44→20:52)
[2019-04-06] MEDS ORDERED: Cyclobenzaprine 10 MG TAB ONE (20:52)
[2019-04-06 21:05] LABS: Bacteria/HPF 4+ HPF (None Seen); Bilirubin 4+ (Negative); Blood, Urine Negative (Negative); Clarity Turbid (Clear); Glucose, Urine (Dipstick) Normal (Negative); Leukocyte Negative Leu/uL (Negative); Mucous/LPF Rare LPF (<2+); Nitrite Negative (Negative); Protein, Urine (Dipstick) 30 mg/dL (Neg-Trace); RBC/HPF 0-3 HPF (0-3); Renal Epithelial 0-3 HPF (None Seen); Squamous Epithelial 0-3 HPF (0-3); Urobilinogen Normal mg/dL (Less than 2); WBC/HPF 0-3 HPF (0-3)
== END 2019-04-06 21:45 | disposition hospice, home (50) ==
LOC: ERS 16:00
DX: G93.41 Metabolic encephalopathy (principal); C50.919 Malignant neoplasm of unspecified site of unspecified female breast; C78.7 Secondary malignant neoplasm of liver and intrahepatic bile duct; N17.9 Acute kidney failure, unspecified; E87.1 Hypo-osmolality and hyponatremia; K83.1 Obstruction of bile duct; F17.210 Nicotine dependence, cigarettes, uncomplicated; Z79.899 Other long term (current) drug therapy
CPT/HCPCS: 36415; 51702; 70450; 80053; 81003; 81015; 82140; 85025; 87077; 87086; 87186; 96361; 96374; 96375; 96376; J2060; J3010